=== PATIENT | female | born 1985 | race African-American/Black ===

== ENCOUNTER 2022-09-04 12:23 | Emergency (ER) | payer SELFPAY, OTHER | END 2022-09-04 13:05 | LOC: ERS 12:23 | DX: Z02.89 Encounter for other administrative examinations (principal); I10 Essential (primary) hypertension; F17.290 Nicotine dependence, other tobacco product, uncomplicated; Z79.899 Other long term (current) drug therapy; V89.2XXA Person injured in unspecified motor-vehicle accident, traffic, initial encounter | CPT/HCPCS: 99283 ==

== ENCOUNTER 2025-06-03 15:30 | Emergency (ER) | payer OTHER | END 2025-06-03 16:28 | disposition home or self-care (01) | LOC: ERS 15:30 | DX: Z02.89 Encounter for other administrative examinations (principal) | CPT/HCPCS: 99282 ==